=== PATIENT | male | born 1980 | race African-American/Black ===

== ENCOUNTER 2016-07-22 10:25 | Emergency (ER) | payer MEDICAID ==
[~2016-07-22] VITALS: Ht 177.8 cm; Wt 63.5 kg
[~2016-07-22 10:25] MED LIST: ATIVAN0.5 MG PO; BENZTROPINE MESY1 MG PO; COGENTIN1 MG ORAL; COGENTIN1 MG PO; DEPAKOT; DEPAKOTE250 MG PO; DEPAKOTE500 MG PO; GEODON20 MG PO; HALDOL5 MG GT; HALDOL5 MG PO; HALOPERIDOL0.5 MG PO; RISPERDAL M-TAB2 MG PO; RISPERDAL PO; ZOLOF; ZYPREXA10 MG ORAL; [UNRECOGNIZED DRUG - OTHER]; cogentin; geodon; zyprexa
[2016-07-22] MEDS ORDERED: BENZTROPINE MESY1 MG PO (10:30)
[2016-07-22] MEDS ORDERED: ZYPREXA2.5 MG ORAL (10:30)
[2016-07-22 10:33] VITALS: BP 130/92
[2016-07-22] MEDS ORDERED: Benztropine 1mg tab ORAL ONE (11:15)
[2016-07-22] MEDS ORDERED: ZYPREXA5 MG ORAL (11:27)
[2016-07-22 11:30] VITALS: BP 125/85
[2016-07-22 11:44] VITALS: BP 125/85
--- NOTE | 2016-07-23 06:59 | Emergency Room Report ---
History of Present Illness General Chief Complaint: Medication Refill Source: Patient, EMS Present Illness HPI [facility] requesting transfer to hospital To obtain his medications patient reports history of schizophrenia reports that he was off his medications for the last 10 days He takes Zyprexa and Cogentin Denies any headache or visual changes denies any chest pain or shortness of breath denies any active suicidal or homicidal thoughts He reports that if he is off his medications he is worried that he would have auditory hallucinations At this time denies any auditory hallucinations Allergies: Coded Allergies: ZIPRASIDONE (Verified Allergy, Intermediate, 06/30/16) SERTRALINE (Unverified Allergy, Unknown, 05/15/15) Patient History Past Medical History: see triage record Pertinent Family History: none Reviewed Nursing Documentation: PMH: Agreed, PSxH: Agreed Nursing Documentation-PMH Hx Cardiac Problems: No Hx Hypertension: No Hx Pacemaker: No Hx Asthma: No Hx COPD: No Hx Diabetes: No Hx Cancer: No Hx Gastrointestinal Problems: No Hx Dialysis: No History Of Psychiatric Problem: Yes Hx Neurological Problems: No Hx Cerebrovascular Accident: No Hx Seizures: Yes Review of Systems All Other Systems: negative except mentioned in HPI Physical Exam Vital Signs Date Time Temp Pulse Resp B/P Pulse Ox O2 Delivery O2 Flow Rate FiO2 07/22/16 10:24 98.1 80 18 130/92 100 Room Air Sp02 EP Interpretation: reviewed, normal General Appearance: well appearing, no apparent distress Head: normocephalic, atraumatic Eyes: bilateral eye EOMI, bilateral eye PERRL ENT: hearing grossly normal, normal pharynx, TMs + canals normal, uvula midline Neck: full range of motion, supple, no meningismus, no bony tend Respiratory: lungs clear, normal breath sounds, no rhonchi, no respiratory distress, no retraction, no accessory muscle use Cardiovascular #1: normal peripheral pulses, regular rate, rhythm, no edema, no gallop, no JVD, no murmur Gastrointestinal: normal bowel sounds, non tender, soft, no mass, no organomegaly, non-distended, no guarding, no hernia, no pulsatile mass, no rebound Genitourinary: no CVA tenderness Musculoskeletal: normal inspection Neurologic: oriented x3, responsive, obiee report developer III-XII nml as tested, motor strength/ tone normal, sensory intact Psychiatric: other - Mildly blunted affect Skin: normal color, no rash, warm/dry, palpation normal Lymphatic: normal inspection, no adenopathy Medical Decision Making Diagnostic Impression: Primary Impression: schizophrenia ER Course Patient was provided with his medications here for the initial dose given a prescription for further medications patient continues to deny any suicidal or homicidal thoughts Feels well and requesting discharge Last Vital Signs Date Time Temp Pulse Resp B/P Pulse Ox O2 Delivery O2 Flow Rate FiO2 07/22/16 11:44 98.1 80 16 125/85 100 Room Air Status: improved Disposition: HOME, SELF-CARE Condition: Improved Scripts Olanzapine* (ZYPREXA*) 5 Mg Tablet 5 MG ORAL DAILY, #20 TAB Prov: BHUMIKA DOTY D.O. 07/22/16 Referrals: NON PHYSICIAN (PCP) Patient Instructions: Schizophrenia Additional Instructions: Patient is provided with the discharge instructions notified to follow up with primary doctor in the next 2-3 days otherwise return to the er with any worsening symptoms. BHUMIKA DOTY D.O. Jul 23, 2016 06:59
== END 2016-07-22 11:44 | disposition home or self-care (01) ==
LOC: EDBD 10:25 → EMR 11:16
DX: Z76.0 Encounter for issue of repeat prescription (principal); F20.9 Schizophrenia, unspecified; Z88.8 Allergy status to other drugs, medicaments and biological substances
CPT/HCPCS: 99282

== ENCOUNTER 2016-10-26 22:19 | Emergency (ER) | payer MEDICAID ==
[~2016-10-26] VITALS: Ht 167.6 cm; Wt 72.1 kg
[~2016-10-26 22:19] MED LIST changes: +ZYPREXA2.5 MG ORAL; +ZYPREXA5 MG ORAL
[2016-10-26 22:30] VITALS: BP 122/78
[2016-10-26] MEDS ORDERED: BENZTROPINE MESY1 MG PO (22:41)
[2016-10-26] MEDS ORDERED: ZYPREXA10 MG ORAL (22:41)
--- NOTE | 2016-10-26 22:42 | Emergency Room Report ---
History of Present Illness General Chief Complaint: General Complaint Source: Patient Present Illness HPI Is a 36-year-old male with a history of schizophrenia. He takes fracture said Cogentin. He said his been out of his medication for 8 weeks now. He said hearing voices. He said is getting worse. Similar worse in the past the come to hurt himself. Denies any particular plan. Denies any recent cocaine abuse. Similar symptom in the past. He's been here twice in the last few months for the same thing. Allergies: Coded Allergies: ZIPRASIDONE (Verified Allergy, Intermediate, 06/30/16) SERTRALINE (Unverified Allergy, Unknown, 05/15/15) Patient History Past Medical History: see triage record, old chart reviewed, schizophrenia Past Surgical History: other Family History: none Social History: tobacco use Immunizations: other Reviewed Nursing Documentation: PMH: Agreed, PSxH: Agreed Nursing Documentation-PMH Hx Cardiac Problems: No Hx Hypertension: No Hx Pacemaker: No Hx Asthma: No Hx COPD: No Hx Diabetes: No Hx Cancer: No Hx Gastrointestinal Problems: No Hx Dialysis: No History Of Psychiatric Problem: No Hx Neurological Problems: No Hx Cerebrovascular Accident: No Hx Seizures: Yes Review of Systems ENT: Denies: sore throat Cardiovascular: Denies: chest pain, palpitations Gastrointestinal/Abdominal: Denies: diarrhea, nausea, vomiting Musculoskeletal: Denies: back problems Skin: Denies: rash Neurological: Denies: GREGORIO, seizures All Other Systems: negative except mentioned in HPI Physical Exam Vital Signs Date Time Temp Pulse Resp B/P Pulse Ox O2 Delivery O2 Flow Rate FiO2 10/26/16 22:26 97.7 73 15 122/78 99 Room Air vitals normal Sp02 EP Interpretation: reviewed, normal General Appearance: alert/responsive, no apparent distress, non-toxic Head: normocephalic, atraumatic Eyes: PERRL, EOMI ENT: oropharynx normal Neck: supple/symm/no masses Respiratory: effort normal, no rhonchi, no wheezing Cardiovascular: no murmur, gallop, rub Gastrointestinal: non-tender, no mass, non-distended, no rebound/guarding, normal bowel sounds Musculoskeletal: gait & station normal Neurologic: oriented x3, sensory intact, motor strength/tone normal Skin: no rash, normal palpation Medical Decision Making Diagnostic Impression: Primary Impression: Encounter for medication refill Additional Impressions: Schizophrenia Qualified Codes: F20.3 - Undifferentiated schizophrenia History of cocaine abuse ER Course Patient presents with schizophrenia. He looks pretty calm. We'll put her back on his medication. No suicidal thought homicidal thought. No criteria for 5150. We'll discharge home. Last Vital Signs Date Time Temp Pulse Resp B/P Pulse Ox O2 Delivery O2 Flow Rate FiO2 10/26/16 22:26 97.7 73 15 122/78 99 Room Air Status: improved Disposition: HOME, SELF-CARE Condition: Stable Scripts Benztropine Mesylate* (BENZTROPINE MESYLATE*) 1 Mg Tablet 1 MG PO DAILY, #30 TAB Prov: WENDY RICHTER M.D. 10/26/16 Olanzapine* (ZYPREXA*) 10 Mg Tablet 10 MG ORAL DAILY, #30 TAB 0 Refills Prov: WENDY RICHTER M.D. 10/26/16 Additional Instructions: Followup with mental health within 7 days. Return if worse. Abstain from drugs. WENDY RICHTER M.D. Oct 26, 2016 22:42
[2016-10-26] MEDS ORDERED: Benztropine 1mg tab ORAL ONE (22:45)
[2016-10-26 22:55] VITALS: BP 122/78
== END 2016-10-26 22:55 | disposition home or self-care (01) ==
LOC: EMR 22:35
DX: F20.3 Undifferentiated schizophrenia (principal); Z76.0 Encounter for issue of repeat prescription; Z87.898 Personal history of other specified conditions; Z88.8 Allergy status to other drugs, medicaments and biological substances; F17.200 Nicotine dependence, unspecified, uncomplicated
CPT/HCPCS: 99284

== ENCOUNTER 2017-01-20 22:22 | Emergency (ER) | payer MEDICAID ==
[~2017-01-20] VITALS: Ht 167.6 cm; Wt 71.2 kg
[2017-01-20] MEDS ORDERED: KEFLEX500 MG ORAL (23:39)
[2017-01-20 23:54] VITALS: BP 127/90
--- NOTE | 2017-01-21 04:19 | Emergency Room Report ---
History of Present Illness General Chief Complaint: Skin Rash/Abscess Source: Patient Present Illness HPI 36-year-old male presents to ED for evaluation. States he's had a rash between his legs for the last one week. States it is very itchy. Pain is sharp, 10 out of 10, nonradiating. Denies fevers or chills. Denies any recent sexual intercourse. Denies any discharge. No other aggravating or leading factors. Denies any other associated symptom Allergies: Coded Allergies: ZIPRASIDONE (Verified Allergy, Intermediate, 06/30/16) SERTRALINE (Unverified Allergy, Unknown, 05/15/15) Patient History Past Medical History: psych hx Past Surgical History: none Pertinent Family History: none Social History: Denies: alcohol use, drug use, smoking Immunizations: UTD Reviewed Nursing Documentation: PMH: Agreed, PSxH: Agreed Nursing Documentation-PMH Hx Cardiac Problems: No Hx Hypertension: No Hx Pacemaker: No Hx Asthma: No Hx COPD: No Hx Diabetes: No Hx Cancer: No Hx Gastrointestinal Problems: No Hx Dialysis: No History Of Psychiatric Problem: Yes - PARANOID SCHIZOPHRENIA Hx Neurological Problems: No Hx Cerebrovascular Accident: No Hx Seizures: Yes Review of Systems All Other Systems: negative except mentioned in HPI Physical Exam Vital Signs Date Time Temp Pulse Resp B/P Pulse Ox O2 Delivery O2 Flow Rate FiO2 01/20/17 22:43 98.6 90 18 127/90 98 Room Air Sp02 EP Interpretation: reviewed, normal General Appearance: no apparent distress, alert, GCS 15, non-toxic Head: normocephalic, atraumatic Eyes: bilateral eye PERRL, bilateral eye normal inspection ENT: hearing grossly normal, normal pharynx, no angioedema, normal voice Neck: full range of motion, supple/symm/no masses Respiratory: chest non-tender, lungs clear, normal breath sounds, speaking full sentences Cardiovascular #1: regular rate, rhythm, no edema Cardiovascular #2: 2+ carotid (R), 2+ carotid (L), 2+ radial (R), 2+ radial (L) , 2+ dorsalis pedis (R), 2+ dorsalis pedis (L) Gastrointestinal: normal bowel sounds, non tender, soft, non-distended, no guarding, no rebound Rectal: deferred Genitourinary: normal inspection, no CVA tenderness Musculoskeletal: back normal, gait/station normal, normal range of motion, non- tender Neurologic: alert, oriented x3, responsive, motor strength/tone normal, sensory intact, speech normal Psychiatric: judgement/insight normal, memory normal, mood/affect normal, no suicidal/homicidal ideation Reflexes: 3+ bicep (R), 3+ bicep (L), 3+ tricep (R), 3+ tricep (L), 3+ knee (R) , 3+ knee (L) Skin: normal color, warm/dry, well hydrated, rash - induration between legs Lymphatic: no adenopathy Medical Decision Making Diagnostic Impression: Primary Impression: Rash ER Course Hospital Course 36-year-old male presents to ED with pain, rash between legs Differential diagnoses include: Cellulitis, dermatitis, insect bite, abscess Clinical course Patient placed on stretcher. After initial history, physical exam reveals a male in no acute distress. On exam there is a site for mild erythema and induration to bilateral inner thighs. No genital involvement. No fluctuance or discharge. Diagnosis - rash stable and discharged to home with prescription for Keflex. Instructed to followup with PMD. Instructed return to ED if symptoms recur or worsen Last Vital Signs Date Time Temp Pulse Resp B/P Pulse Ox O2 Delivery O2 Flow Rate FiO2 01/20/17 23:54 98.6 18 127/90 98 Room Air 01/20/17 22:43 90 Status: improved Disposition: HOME, SELF-CARE Condition: Stable Scripts Cephalexin* (KEFLEX*) 500 Mg Capsule 500 MG ORAL Q6H, #28 CAP 0 Refills Prov: ANNALISE BRICEÑO M.D. 01/20/17 Patient Instructions: ANNALISE Alcantar M.D. Jan 21, 2017 04:19
== END 2017-01-20 23:55 | disposition home or self-care (01) ==
LOC: EMR 23:02
DX: R21 Rash and other nonspecific skin eruption (principal); F20.0 Paranoid schizophrenia; Z88.8 Allergy status to other drugs, medicaments and biological substances
CPT/HCPCS: 99283

== ENCOUNTER 2018-02-02 15:21 | Emergency (ER) | payer MEDICAID ==
[~2018-02-02] VITALS: Ht 165.1 cm; Wt 70.8 kg
[~2018-02-02 15:21] MED LIST changes: +KEFLEX500 MG ORAL
[2018-02-02 15:30] VITALS: BP 112/80
[2018-02-02] MEDS ORDERED: BENZTROPINE ME0.5 MG PO (15:30)
[2018-02-02] MEDS ORDERED: Acetaminophen 500mg (ES) tab ORAL ONE (15:30)
[2018-02-02] MEDS ORDERED: Benztropine 1mg tab ORAL ONE (15:45)
[2018-02-02] MEDS ORDERED: ZyPREXA Zydis 10mg tab ORAL ONE (15:45)
--- NOTE | 2018-02-02 15:54 | Emergency Room Report ---
History of Present Illness General Chief Complaint: Suicidal Source: Patient ([employer]) Present Illness HPI 37-year-old male patient presents ER brought in by police on 5150 hold. Patient reports that he wants to jump in front of a bus and kill himself. police report the patient was at an urgent care claiming suicidal ideation when they were called, police brought him to this facility at that time. Patient denies other complaints at this time. Reports that he was in psych facility a few days ago in [facility], Patient states he was given Zyprexa and Cogentin to treat his inhaler of symptoms however voices in his head told him that he should not take medications and he threw them away. Denies chest pain, SOB, abdominal pain. ([employer]ting) Allergies: Coded Allergies: ZIPRASIDONE (Verified Allergy, Intermediate, 06/30/16) SERTRALINE (Unverified Allergy, Unknown, 05/15/15) Patient History Past Medical History: see triage record Reviewed Nursing Documentation: PMH: Agreed; PSxH: Agreed ([employer]) Nursing Documentation-PMH Hx Cardiac Problems: No Hx Hypertension: No Hx Pacemaker: No Hx Asthma: No Hx COPD: No Hx Diabetes: No Hx Cancer: No Hx Gastrointestinal Problems: No Hx Dialysis: No Hx Neurological Problems: No Hx Cerebrovascular Accident: No Hx Seizures: Yes ([employer]) Review of Systems All Other Systems: negative except mentioned in HPI ([employer]) Physical Exam Vital Signs Date Time Temp Pulse Resp B/P (MAP) Pulse Ox O2 Delivery O2 Flow Rate FiO2 02/02/18 15:23 98.8 105 18 112/80 98 Room Air 98.8 Sp02 EP Interpretation: reviewed, normal General Appearance: well appearing, no apparent distress, alert, GCS 15, non- toxic Head: normocephalic, atraumatic Eyes: bilateral eye normal inspection, bilateral eye PERRL ENT: hearing grossly normal, normal pharynx, no angioedema, normal voice, uvula midline, moist mucus membranes Neck: full range of motion Respiratory: lungs clear, normal breath sounds, no rhonchi, no respiratory distress, no accessory muscle use, no wheezing, speaking full sentences Cardiovascular #1: regular rate, rhythm, no edema Genitourinary: no CVA tenderness Musculoskeletal: back normal, digits/nails normal, gait/station normal, normal range of motion, non-tender Neurologic: alert, oriented x3, responsive, motor strength/tone normal, sensory intact Psychiatric: mood/affect normal, other - SI Skin: no rash ([employer]) Medical Decision Making PA Attestation Dr. Earl is my supervising Physician whom patient management has been discussed with. ([employer]) Diagnostic Impression: Primary Impression: Suicidal ideation Additional Impression: Psychosis Qualified Codes: F20.3 - Undifferentiated schizophrenia ER Course Pt. presents to the ED c/o suicidal ideation on 5150 hold BIB police. Ddx considered but are not limited to anxiety, depression, drug use, alcohol use , behavioral disorder. Vital signs: are WNL, pt. is afebrile Ordered labs, urine drug screen, serum alcohol. Reports hx of arthritis, ordered Tylenol for arthritis pain. ER COURSE: Provided patient with medication in the ER. Provided with Cogentin and Zyprexa. Patient resting comfortably in bed, nontoxic appearing, in no acute distress. Physical exam benign, lungs clear to auscultation, no abdominal TTP, no focal neuro deficits. Ordered sitter for patient. CBC and CMP unremarkable. mild elevation WBCs unlikely due to infection, possibly due to arrest agitation, patient afebrile, denies acute complaints. Urine drug screen negative Acetaminophen and salicylates not elevated Serum alcohol < 3 Patient resting comfortably in bed, in no acute distress, nontoxic appearing. Patient needs psychiatric evaluation. Patient care transferred to Dr. Dexter. Labs Test 02/02/18 15:31 02/02/18 15:33 White Blood Count 12.8 K/UL (4.8-10.8) Red Blood Count 4.85 M/UL (4.70-6.10) Hemoglobin 15.1 G/DL (14.2-18.0) Hematocrit 43.5 % (42.0-52.0) Mean Corpuscular Volume 90 FL (80-99) Mean Corpuscular Hemoglobin 31.2 PG (27.0-31.0) Mean Corpuscular Hemoglobin Concent 34.8 G/DL (32.0-36.0) Red Cell Distribution Width 11.3 % (11.6-14.8) Platelet Count 282 K/UL (150-450) Mean Platelet Volume 6.1 FL (6.5-10.1) Neutrophils (%) (Auto) 67.8 % (45.0-75.0) Lymphocytes (%) (Auto) 22.8 % (20.0-45.0) Monocytes (%) (Auto) 7.5 % (1.0-10.0) Eosinophils (%) (Auto) 0.1 % (0.0-3.0) Basophils (%) (Auto) 1.7 % (0.0-2.0) Sodium Level 141 MMOL/L (136-145) Potassium Level 4.0 MMOL/L (3.5-5.1) Chloride Level 104 MMOL/L (98-107) Carbon Dioxide Level 25 MMOL/L (21-32) Anion Gap 13 mmol/L (5-15) Blood Urea Nitrogen 14 mg/dL (7-18) Creatinine 0.9 MG/DL (0.55-1.30) Estimat Glomerular Filtration Rate > 60 mL/min (>60) Glucose Level 115 MG/DL (74-106) Calcium Level 9.9 MG/DL (8.5-10.1) Total Bilirubin 0.4 MG/DL (0.2-1.0) Aspartate Amino Transf (AST/SGOT) 22 U/L (15-37) Alanine Aminotransferase (ALT/SGPT) 29 U/L (12-78) Alkaline Phosphatase 71 U/L (46-116) Total Protein 8.7 G/DL (6.4-8.2) Albumin 4.4 G/DL (3.4-5.0) Globulin 4.3 g/dL Albumin/Globulin Ratio 1.0 (1.0-2.7) Salicylates Level 2.5 ug/mL (2.8-20) Acetaminophen Level < 2 MCG/ML (10-30) Serum Alcohol < 3 mg/dL Urine Opiates Screen Negative (NEGATIVE) Urine Barbiturates Screen Negative (NEGATIVE) Phencyclidine (PCP) Screen Negative (NEGATIVE) Urine Amphetamines Screen Negative (NEGATIVE) Urine Benzodiazepines Screen Negative (NEGATIVE) Urine Cocaine Screen Negative (NEGATIVE) Urine Marijuana (THC) Screen Negative (NEGATIVE) ([employer]) ER Course Patient was signed out to me. He was placed on a 5150 by police for suicidal thoughts and psychosis. He been sleeping comfortably to the night. He will be transferred to [facility] for psychiatric evaluation. (WENDY RICHTER M.D.) Last Vital Signs Date Time Temp Pulse Resp B/P (MAP) Pulse Ox O2 Delivery O2 Flow Rate FiO2 02/02/18 15:23 98.8 105 18 112/80 98 Room Air 98.8 ([employer]) Status: improved (WENDY RICHTER M.D.) Disposition: XFER TO PSYCH HOSP/UNIT Condition: Stable [employer] Feb 02, 2018 15:54 WENDY RICHTER M.D. Feb 03, 2018 02:06
[2018-02-02 16:20] LABS: ANION GAP 13 mmol/L (5-15); BLOOD UREA NITROGEN 14 mg/dL (7-18); CALCIUM 9.9 MG/DL (8.5-10.1); CARBON DIOXIDE 25 MMOL/L (21-32); CHLORIDE 104 MMOL/L (98-107); CREATININE 0.9 MG/DL (0.55-1.30); SODIUM 141 MMOL/L (136-145)
[2018-02-02 16:24] LABS: ALANINE AMINOTRANSFERASE 29 U/L (12-78); ALBUMIN 4.4 G/DL (3.4-5.0); ALKALINE PHOSPHATASE 71 U/L (46-116); ASPARTATE AMINO TRANSFERASE 22 U/L (15-37); BILIRUBIN,TOTAL 0.4 MG/DL (0.2-1.0)
[2018-02-02 16:32] LABS: BASOPHILS % (AUTO) 1.7 % (0.0-2.0); EOSINOPHILS % (AUTO) 0.1 % (0.0-3.0); HEMATOCRIT 43.5 % (42.0-52.0); HEMOGLOBIN 15.1 G/DL (14.2-18.0); LYMPHOCYTES % (AUTO) 22.8 % (20.0-45.0); MEAN CORPUSCULAR VOLUME 90 FL (80-99); MONOCYTES % (AUTO) 7.5 % (1.0-10.0); NEUTROPHILS % (AUTO) 67.8 % (45.0-75.0); PLATELET COUNT 282 K/UL (150-450); RED BLOOD COUNT 4.85 M/UL (4.70-6.10); RED CELL DISTRIBUTION WIDTH 11.3 % (11.6-14.8); WHITE BLOOD COUNT 12.8 K/UL (4.8-10.8)
[2018-02-02 19:00] VITALS: BP 158/99
[2018-02-03] VITALS: BP 107/68
[2018-02-03 03:07] VITALS: BP 110/67
[2018-02-03 06:33] VITALS: BP 131/80
[2018-02-03 06:38] VITALS: BP 131/80
== END 2018-02-03 06:41 ==
LOC: EMR 15:45
DX: F29 Unspecified psychosis not due to a substance or known physiological condition (principal); R45.851 Suicidal ideations
CPT/HCPCS: 36415; 80053; 80307; 80329; 85025; 99285

== ENCOUNTER 2018-03-27 04:24 | Emergency (ER) | payer MEDICAID ==
[~2018-03-27] VITALS: Ht 165.1 cm; Wt 68.9 kg
[~2018-03-27 04:24] MED LIST changes: +BENZTROPINE ME0.5 MG PO
[2018-03-27 04:35] VITALS: BP 122/87
[2018-03-27] MEDS ORDERED: BENZTROPINE ME0.5 MG PO (04:37)
--- NOTE | 2018-03-27 04:50 | Emergency Room Report ---
History of Present Illness General Chief Complaint: Behavioral Complaint Source: Patient Present Illness HPI Is a 37-year-old male with a history of schizophrenia. He supposed to be on Zyprexa 10 mg and Cogentin 1 mg. He said is out of his medication because his [employer] benefit has not come in yet. [facility] with a [facility] with the medication but he out now. He's been out for a few days. He presents with chief complaint of feeling depressed and hearing voices. Onset tonight after he left the [employer]. He said that he used $200 on lap dances and felt bad about it. No particular suicidal plans. No nausea no vomiting. Similar symptom in the past. Denies any cocaine use. He does have a history of it. He lives in transitional housing and get flu benefits. Allergies: Coded Allergies: No Known Allergies (Unverified , 03/27/18) Patient History Past Medical History: see triage record, old chart reviewed, schizophrenia Past Surgical History: other Family History: none Social History: tobacco use Immunizations: other Reviewed Nursing Documentation: PMH: Agreed; PSxH: Agreed Nursing Documentation-PMH Hx Cardiac Problems: No Hx Hypertension: No Hx Pacemaker: No Hx Asthma: No Hx COPD: No Hx Diabetes: No Hx Cancer: No Hx Gastrointestinal Problems: No Hx Dialysis: No History Of Psychiatric Problem: Yes - schizophrenia Hx Neurological Problems: No Hx Cerebrovascular Accident: No Hx Seizures: No Review of Systems ENT: Denies: sore throat Cardiovascular: Denies: chest pain, palpitations Gastrointestinal/Abdominal: Denies: nausea, vomiting, diarrhea Musculoskeletal: Denies: back problems Skin: Denies: rash Neurological: Denies: GREGORIO, seizures All Other Systems: negative except mentioned in HPI Physical Exam Vital Signs Date Time Temp Pulse Resp B/P (MAP) Pulse Ox O2 Delivery O2 Flow Rate FiO2 03/27/18 04:28 98.2 87 22 122/87 96 Room Air 98.2 vitals normal Sp02 EP Interpretation: reviewed, normal General Appearance: alert/responsive, no apparent distress, non-toxic Head: normocephalic, atraumatic Eyes: PERRL, EOMI ENT: oropharynx normal Neck: supple/symm/no masses Respiratory: effort normal, no rhonchi, no wheezing Cardiovascular: no murmur, gallop, rub Gastrointestinal: non-tender, no mass, non-distended, no rebound/guarding, normal bowel sounds Musculoskeletal: gait & station normal Neurologic: oriented x3, sensory intact, motor strength/tone normal Skin: no rash, normal palpation Medical Decision Making Diagnostic Impression: Primary Impression: Schizophrenia Qualified Codes: F20.9 - Schizophrenia, unspecified ER Course Patient with schizophrenia and auditory hallucination. He is calm, courteous and cooperative. No criteria for 5150. Dose of Zyprexa and Cogentin given here. We'll discharge home. This patient is a chronic risk of self injury due to poor impulse control, limited coping skills, and judgment intermittently impaired by intoxication. I believe that the available clinical evidence to suggest that these characteristics derived primarily from personality disorder and are likely very stable over time. Hospitalization would likely attenuate risk of self-harm only during usp period, without lasting risk reduction. Serious self-harm , while possible, would likely be inadvertent, and because of impulsivity, and foreseeable. For these reasons, I do not believe hospitalization would provide meaningful reduction in risk of self-harm. Last Vital Signs Date Time Temp Pulse Resp B/P (MAP) Pulse Ox O2 Delivery O2 Flow Rate FiO2 03/27/18 04:28 98.2 87 22 122/87 96 Room Air 98.2 Status: improved Disposition: HOME, SELF-CARE Condition: Stable Patient Instructions: Self-Destructive Behavior Additional Instructions: Follow-up at mental health within 7 days. Take your medication. Return if symptom worsen. WENDY RICHTER M.D. Mar 27, 2018 04:49
[2018-03-27 04:57] VITALS: BP 122/87
[2018-03-27] MEDS ORDERED: Benztropine 1mg tab ORAL ONE (05:00)
== END 2018-03-27 04:57 | disposition home or self-care (01) ==
LOC: EMR 04:48
DX: F20.9 Schizophrenia, unspecified (principal)
CPT/HCPCS: 99282

== ENCOUNTER 2018-06-19 03:18 | Emergency (ER) | payer MEDICAID, OTHER ==
[~2018-06-19] VITALS: Ht 165.1 cm; Wt 72.1 kg
[2018-06-19 04:04] VITALS: BP 137/98
[2018-06-19] MEDS ORDERED: Benztropine 1mg tab ORAL ONE (04:15)
[2018-06-19] MEDS ORDERED: ZyPREXA Zydis 10mg tab ORAL ONE (04:15)
[2018-06-19] MEDS ORDERED: LORazepam 1mg tab ORAL ONE (04:15)
--- NOTE | 2018-06-19 04:48 | Emergency Room Report ---
History of Present Illness General Chief Complaint: Behavioral Complaint Source: Patient Present Illness HPI 38-year-old male presents ED for evaluation. Patient presents stating he is hearing voices. States that the voices are telling him to hurt himself. History of schizophrenia. States he is compliant with his medication. States that he is upset because his and daughter left him. Denies alcohol or drug use. No other aggravating relieving factors. Denies any other associated symptoms Allergies: Coded Allergies: SERTRALINE (Verified Allergy, Unknown, 06/19/18) ZIPRASIDONE (Verified Allergy, Unknown, 06/19/18) Patient History Past Medical History: psych hx Past Surgical History: none Pertinent Family History: none Social History: Denies: smoking, alcohol use, drug use Immunizations: UTD Reviewed Nursing Documentation: PMH: Agreed; PSxH: Agreed Nursing Documentation-PMH Hx Cardiac Problems: No Hx Hypertension: No Hx Pacemaker: No Hx Asthma: No Hx COPD: No Hx Diabetes: No Hx Cancer: No Hx Gastrointestinal Problems: No Hx Dialysis: No History Of Psychiatric Problem: Yes - schizophrenia Hx Neurological Problems: Yes - arthritis Hx Cerebrovascular Accident: No Hx Seizures: No Review of Systems All Other Systems: negative except mentioned in HPI Physical Exam Vital Signs Date Time Temp Pulse Resp B/P (MAP) Pulse Ox O2 Delivery O2 Flow Rate FiO2 06/19/18 03:40 98.6 87 16 137/98 85 Room Air Sp02 EP Interpretation: reviewed, normal General Appearance: no apparent distress, alert, GCS 15, non-toxic Head: normocephalic, atraumatic Eyes: bilateral eye normal inspection, bilateral eye PERRL ENT: hearing grossly normal, normal pharynx, no angioedema, normal voice Neck: full range of motion, supple/symm/no masses Respiratory: chest non-tender, lungs clear, normal breath sounds, speaking full sentences Cardiovascular #1: regular rate, rhythm, no edema Cardiovascular #2: 2+ carotid (R), 2+ carotid (L), 2+ radial (R), 2+ radial (L) , 2+ dorsalis pedis (R), 2+ dorsalis pedis (L) Gastrointestinal: normal bowel sounds, non tender, soft, non-distended, no guarding, no rebound Rectal: deferred Genitourinary: normal inspection, no CVA tenderness Musculoskeletal: back normal, gait/station normal, normal range of motion, non- tender Neurologic: alert, oriented x3, responsive, motor strength/tone normal, sensory intact, speech normal Psychiatric: memory normal, depressed affect, anxious Reflexes: 3+ bicep (R), 3+ bicep (L), 3+ tricep (R), 3+ tricep (L), 3+ knee (R) , 3+ knee (L) Skin: normal color, no rash, warm/dry, well hydrated Lymphatic: no adenopathy Medical Decision Making Diagnostic Impression: Primary Impression: Schizophrenia Qualified Codes: F20.9 - Schizophrenia, unspecified ER Course Hospital Course 38 yo M presents to ED c/o hallucinations. h/o schizophrenia Differential diagnoses include: Psychosis, EtOH, drug abuse Clinical course patient placed on stretcher. On firebreak cutter. After initial history and physical exam reveals middle-aged male in no acute distress. Patient maintains good eye contact during exam. Answering questions appropriately. I reviewed EMR. Patient has been here multiple times for similar presentations. I ordered patient Brook Bryant Cogentin here. On reassessment patient states he feels better. No longer endorsing SI or hallucinations. States he feels comfortable with discharge at this time. Do not believe emergent psychiatric evaluation is indicated. I will provide him refills of this medication. Safe for discharge or close outpatient follow-up i. I feel this is a highly complex case requiring extensive working including EKG/Rhythm strip, Xray/CT/US, Blood/urine lab work, repeat exams while in ED, and administration of strong opiates/narcotics for pain control, admission to hospital or close patient follow up. Diagnosis - schizophrenia Stable and discharged to home with Rx Blanka Bryant. Followup with PMD, psychiatry. Return to ED if symptoms recur or worsen Last Vital Signs Date Time Temp Pulse Resp B/P (MAP) Pulse Ox O2 Delivery O2 Flow Rate FiO2 06/19/18 04:04 87 16 Room Air 06/19/18 04:04 98.6 137/98 93 Status: improved Disposition: HOME, SELF-CARE Condition: Stable Scripts Benztropine Mesylate* (COGENTIN*) 0.5 Mg Tablet 1 MG PO DAILY for 30 Days, TAB Prov: Ace Skaggs MD 06/19/18 Olanzapine* (ZYPREXA*) 10 Mg Tablet 10 MG ORAL DAILY, #30 TAB 0 Refills Prov: Ace Skaggs MD 06/19/18 Referrals: NON PHYSICIAN (PCP) Ace Skaggs MD Jun 19, 2018 04:48
[2018-06-19] MEDS ORDERED: BENZTROPINE ME0.5 MG PO (05:44)
[2018-06-19] MEDS ORDERED: ZYPREXA10 MG ORAL (05:44)
[2018-06-19 05:57] VITALS: BP 134/90
[2018-06-19 05:58] VITALS: BP 134/90
== END 2018-06-19 05:59 | disposition home or self-care (01) ==
LOC: EMR 04:10
DX: F20.9 Schizophrenia, unspecified (principal); Z88.8 Allergy status to other drugs, medicaments and biological substances
CPT/HCPCS: 99283

== ENCOUNTER 2018-07-25 20:46 | Emergency (ER) | payer OTHER ==
[~2018-07-25] VITALS: Ht 165.1 cm; Wt 72.1 kg
[2018-07-25 21:00] VITALS: BP 149/99
--- NOTE | 2018-07-25 21:05 | NUR ---
ED Nurse Note: PT stated that he is hearing voices, but the voices are not telling him to harm him himself or others. he just needs his zyprexa medication and cogentin. he is due to see his psych MD tomorrow but the pt needs his medican tonight, due to the voices. when asked,"what are the voices saying or tellin you to do" the pt states the voices are just rambaling.
[2018-07-25] MEDS ORDERED: Benztropine 1mg tab ORAL ONE (21:15)
--- NOTE | 2018-07-25 21:16 | Emergency Room Report ---
History of Present Illness General Chief Complaint: Behavioral Complaint Source: Patient Present Illness HPI Is a 38-year-old male with a history of schizophrenia. He takes Eprex and Cogentin. He presents with chief complaint of hearing voices and needing a dose of his medication. He said that he missed his appointment with his doctor today for refill. He said he has an appointment tomorrow at 9 AM. He does not want a prescription. He wants a dose of his medicine tonight. He said he he' ll voices but not suicidal or homicidal. No other complaint. He said he is homeless but does not want to go to any shelters. Allergies: Coded Allergies: SERTRALINE (Verified Allergy, Unknown, 06/19/18) ZIPRASIDONE (Verified Allergy, Unknown, 06/19/18) Patient History Past Medical History: see triage record, old chart reviewed, psych hx Past Surgical History: none Pertinent Family History: none Social History: Reports: smoking Immunizations: other Reviewed Nursing Documentation: PMH: Agreed; PSxH: Agreed Nursing Documentation-PMH Past Medical History: No Stated History Hx Cardiac Problems: No Hx Hypertension: No Hx Pacemaker: No Hx Asthma: No Hx COPD: No Hx Diabetes: No Hx Cancer: No Hx Gastrointestinal Problems: No Hx Dialysis: No History Of Psychiatric Problem: Yes Hx Neurological Problems: Yes - arthritis Hx Cerebrovascular Accident: No Hx Seizures: No Review of Systems Eye: Denies: eye pain, blurred vision ENT: Denies: ear pain, nose congestion, throat swelling Respiratory: Denies: cough, shortness of breath Cardiovascular: Denies: chest pain, palpitations Gastrointestinal: Denies: abdominal pain, diarrhea, nausea, vomiting Musculoskeletal: Denies: back pain, joint pain Skin: Denies: rash Neurological: Denies: headache, numbness Endocrine: Denies: increased thirst, increased urine Hematologic/Lymphatic: Denies: easy bruising All Other Systems: negative except mentioned in HPI Physical Exam Vital Signs Date Time Temp Pulse Resp B/P (MAP) Pulse Ox O2 Delivery O2 Flow Rate FiO2 07/25/18 20:54 98.4 88 20 149/99 98 Room Air vitals unremarkable Sp02 EP Interpretation: reviewed, normal General Appearance: well appearing, no apparent distress, alert Head: normocephalic, atraumatic Eyes: bilateral eye PERRL, bilateral eye EOMI ENT: hearing grossly normal, normal pharynx Neck: full range of motion, supple, no meningismus Respiratory: chest non-tender, lungs clear, normal breath sounds Cardiovascular #1: regular rate, rhythm, no murmur Gastrointestinal: normal bowel sounds, non tender, no mass, no organomegaly, no bruit, non-distended Musculoskeletal: back normal, gait/station normal, normal range of motion Psychiatric: mood/affect normal Skin: warm/dry Medical Decision Making Diagnostic Impression: Primary Impression: Schizophrenia Qualified Codes: F20.9 - Schizophrenia, unspecified Additional Impression: Encounter for medication refill ER Course Patient with a history of schizophrenia here just for a dose of his medications. He does not want senior care or prescriptions. Does not want to stay. No suicidal or homicidal. No criteria for 5150. Last Vital Signs Date Time Temp Pulse Resp B/P (MAP) Pulse Ox O2 Delivery O2 Flow Rate FiO2 07/25/18 20:54 98.4 88 20 149/99 98 Room Air Status: unchanged Disposition: HOME, SELF-CARE Condition: Stable Additional Instructions: Follow-up with your tomorrow at 9 AM as scheduled. Return if symptom worsen. Dustin Marie MD Jul 25, 2018 21:16
[2018-07-25 21:41] VITALS: BP 140/95
--- NOTE | 2018-07-25 21:42 | NUR ---
ED Nurse Note: Pt is DC per ERMD order. pt is alert and oriented times 4. pt vital signs, status and condition are within normal limits. pt has left with all belongings including DC notes and prescription. pt is able to understand DC notes and prescriptions. pt is instructed to follow up with primary provider as soon as possible. pt is stable for discharge. pt is instructed to return as soon as possible to ER if any reoccurance of symptoms. all pt status, vital signs, and condition is reported to ERMD prior to DC. pt is able to ambulate with steady gait. PT ID is DC.
== END 2018-07-25 21:49 | disposition home or self-care (01) ==
LOC: EMR 21:10
DX: F20.9 Schizophrenia, unspecified (principal); Z76.0 Encounter for issue of repeat prescription; Z88.8 Allergy status to other drugs, medicaments and biological substances; F17.200 Nicotine dependence, unspecified, uncomplicated
CPT/HCPCS: 99282